=== PATIENT | male | born 1935 | race Caucasian/White ===

== ENCOUNTER 2017-10-17 23:20 | Inpatient (IN) | payer OTHER, MEDICAID ==
[~2017-10-17] VITALS: Ht 165.1 cm; Wt 74.4 kg
[2017-10-18 00:18] LABS: microscopic required? NO
[2017-10-18 00:45] LABS: BASOPHIL % 0.3 % (0-2); PLATELET COUNT 241 x10^3mcL (130-400)
[2017-10-18 00:45] LABS: urine erythrocyte NEGATIVE (NEGATIVE)
[2017-10-18 00:51] LABS: RED CELL DISTRIBUTION WIDTH 14.9 % (11.5-14.5)
[2017-10-18 00:53] LABS: CALCIUM 8.5 mg/dL (8.5-10.1); CARBON DIOXIDE 24.5 mmol/L (21-32); CHLORIDE SERUM 99 mmol/L (98-107); GLUCOSE SERUM 101 mg/dL (74-106); POTASSIUM SERUM 3.9 mmol/L (3.5-5.1); SODIUM SERUM 135 mmol/L (136-145)
[2017-10-18 01:07] LABS: ALBUMIN 3.9 g/dL (3.4-5.0); ALKALINE PHOSPHATASE 164 U/L (46-116); ALT/SGPT 50 U/L (16-63); AST/SGOT 44 U/L (15-37); BILIRUBIN TOTAL 0.4 mg/dL (0.20-1.00); LIPASE 247 IU/L (73-393); TOTAL PROTEIN, SERUM 8.2 g/dL (6.4-8.2)
[2017-10-18] MEDS ORDERED: LANTUS SOLOS100 U/M1 SQ (01:23)
[2017-10-18] MEDS ORDERED: GABAPENTIN100 M2 PO (01:23)
[2017-10-18] MEDS ORDERED: METFORMIN HCL500 MG PO (01:53)
[2017-10-18] MEDS ORDERED: BENAZEPRIL HYDR20 M1 (02:44)
[2017-10-18] MEDS ORDERED: BENAZEPRIL HYDR20 M1 PO (02:45)
[2017-10-18 03:44] VITALS: BP 171/85
[2017-10-18 03:57] LABS: CHOLESTEROL/HDL RATIO 3.2; MAGNESIUM 1.8 mg/dL (1.8-2.4)
[2017-10-18 04:03] LABS: T3 TOTAL 1.01 ng/mL
[2017-10-18 04:07] LABS: FREE T4 1.02 ng/dL (0.76-1.46); FREE THYROXINE INDEX 2.4 ug/dL (1.4-4.5); T4(THYROXINE) 6.8 ug/dL (4.7-13.3)
[2017-10-18 05:40] VITALS: BP 148/74
[2017-10-18 07:50] LABS: BASOPHIL % 0.3 % (0-2); PLATELET COUNT 202 x10^3mcL (130-400)
[2017-10-18 08:05] LABS: RED CELL DISTRIBUTION WIDTH 14.8 % (11.5-14.5)
[2017-10-18 09:24] VITALS: BP 165/76
[2017-10-18 12:30] VITALS: BP 157/72
[2017-10-18 17:40] VITALS: BP 139/65
[2017-10-18 22:15] VITALS: BP 133/69
[2017-10-19 04:59] VITALS: BP 147/75
[2017-10-19 06:21] LABS: CALCIUM 8.7 mg/dL (8.5-10.1); CARBON DIOXIDE 27.4 mmol/L (21-32); CHLORIDE SERUM 103 mmol/L (98-107); GLUCOSE SERUM 104 mg/dL (74-106); MAGNESIUM 1.7 mg/dL (1.8-2.4); PHOSPHOROUS 3.6 mg/dL (2.5-4.9); POTASSIUM SERUM 4.7 mmol/L (3.5-5.1); SODIUM SERUM 137 mmol/L (136-145)
[2017-10-19 06:25] LABS: BASOPHIL % 1.2 % (0-2); PLATELET COUNT 219 x10^3mcL (130-400)
[2017-10-19 09:26] VITALS: BP 124/70
[2017-10-19] MEDS ORDERED: LEVOFLOXACIN500 M1 PO (13:16)
[2017-10-19] MEDS ORDERED: CLINDAMYCIN HC300 MG PO (13:22)
[2017-10-19] MEDS ORDERED: LAC PO (13:23)
[2017-10-19 15:22] VITALS: BP 124/70
== END 2017-10-19 16:06 | disposition home health service (06) | DRG 177 ==
LOC: ED 23:20 → DU 10-18 02:21 → MU 10-18 02:21 → DU 10-18 03:35 → MU 10-19 10:57
PROVIDERS: Emergency Medicine; ADMIT Family Medicine Sports Medicine
DX: J69.0 Pneumonitis due to inhalation of food and vomit (principal); G93.41 Metabolic encephalopathy; D68.69 Other thrombophilia; E87.1 Hypo-osmolality and hyponatremia; E11.649 Type 2 diabetes mellitus with hypoglycemia without coma; G62.9 Polyneuropathy, unspecified; E78.1 Pure hyperglyceridemia; E83.42 Hypomagnesemia; I10 Essential (primary) hypertension; D64.9 Anemia, unspecified; E66.3 Overweight; Z68.27 Body mass index [BMI] 27.0-27.9, adult; Z79.84 Long term (current) use of oral hypoglycemic drugs
CPT/HCPCS: 82962; 83880; 84439; J0696; J1815; J1956; J3490; J7030; J7042; Q0092